=== PATIENT | male | born 1995 | race Two or more races ===

== ENCOUNTER 2021-04-10 23:19 | Emergency (ER) | payer OTHER ==
[~2021-04-10] VITALS: Ht 180.3 cm; Wt 68.2 kg
[2021-04-10 23:34] VITALS: BP 122/61
== END 2021-04-11 00:30 | disposition left against medical advice (07) ==
LOC: EMS 23:19
DX: R05 Cough (principal); Z53.21 Procedure and treatment not carried out due to patient leaving prior to being seen by health care provider